=== PATIENT | female | born 1995 | race Caucasian/White ===

== ENCOUNTER 2017-01-11 20:53 | Emergency (ER) | payer OTHER ==
[~2017-01-11] VITALS: Ht 162.6 cm; Wt 54.2 kg
[2017-01-11 20:59] VITALS: TEMP 37.2; Ht 162.6 cm; Wt 54.2 kg
[2017-01-11] MEDS ORDERED: NIAC1TAB PO (21:11)
[2017-01-11] MEDS ORDERED: BCPILLS PO (21:11)
[2017-01-11] MEDS ORDERED: [UNRECOGNIZED DRUG - OTHER] PO (21:17)
[2017-01-11 21:26] LABS: URINE APPEARANCE CLOUDY (CLEAR); URINE BILIRUBIN NEG (NEG); URINE COLOR RED; URINE EPITHELIAL CELL AUTO 0-5 /lpf (0-5); URINE NITRITE NEG (NEG); URINE SPECIFIC GRAVITY 1.008 (1.000-1.030); UROBILINOGEN NEG (NEG); ZZUR CULT IF INDIC CLEAN CATCH YES
[2017-01-11 21:27] LABS: MANUAL MICROSCOPIC REQUIRED? NO; REVIEW REQ? YES
[2017-01-11] MEDS ORDERED: PHENAZOPYRIDINE HOME PACK 200 MG VIAL PO ONE (21:45)
[2017-01-11] MEDS ORDERED: PHEN-876 PO (21:47)
[2017-01-11] MEDS ORDERED: NITR-5 PO (21:47)
--- NOTE | 2017-01-11 21:48 | EMERGENCY ROOM VISIT NOTE ---
History First contact with patient: 21:29 Chief Complaint: HEMATURIA Stated Complaint: HEMATURIA, POSSIBLE KIDNEY INFECTION Nursing Triage Summary: c/o uti symptoms for 2 hrs. seem at [facility] and given rx told to come here. History of Present Illness The patient is a 21 year old female who presents to the Emergency Room with complaints of urinary symptoms. The patient states that approximately 2 hours ago, she began to have blood in her urine. She reports she also has urinary urgency, frequency and dysuria. She reports some pressure in her lower abdomen. She does state that she had some low back pain earlier, but she was riding in the car for 10 hours today. She reports her back pain has improved at this time. She was seen at [facility] and was discharged home with a prescription for an antibiotic. She states that she received a call from [facility] and they told her to come here for evaluation of a possible kidney infection. The patient denies any vomiting or fevers. She has a history of UTIs and states this feels similar. Review of Systems A complete 10 point review of systems was reviewed with the patient with pertinent positives and negatives as per history of present illness. All else were negative. Social History Smoking Status: Never Smoker Current/Historical Medications Scheduled Control Pills ( Control Pills), 1 TAB PO DAILY Nitrofurantoin Monohyd Macrocr (Macrobid), 100 MG PO BID Phenazopyridine HCl (Pyridium), 200 MG PO TID [Nicomide], 1 TAB PO BID Physical Exam Vital Signs Date Time Temp Pulse Resp B/P (MAP) Pulse Ox O2 Delivery O2 Flow Rate FiO2 01/11/17 22:10 102 18 137/82 98 Room Air 01/11/17 20:59 37.2 72 16 135/100 100 Room Air Physical Exam VITALS: Vitals are noted on the nurse's note and reviewed by myself. Vital signs stable. GENERAL: This is a 21-year-old female, in no acute distress, nondiaphoretic, well-developed well-nourished. HEART: Regular rate and rhythm without murmurs gallops or rubs. LUNGS: Clear to auscultation bilaterally without wheezes, rales or rhonchi. ABDOMEN: Positive bowel sounds x 4. Soft, nontender to palpation. No CVA tenderness. NEURO: Patient was alert and oriented to person place and time. Medical Decision & Procedures Laboratory Results Test 01/11/17 21:05 Urine Color RED Urine Appearance CLOUDY (CLEAR) Urine pH 7.0 (4.5-7.5) Urine Specific [place] 1.008 (1.000-1.030) Urine Protein 2+ (NEG) Urine Glucose (UA) NEG (NEG) Urine Ketones NEG (NEG) Urine Occult Blood 3+ (NEG) Urine Nitrite NEG (NEG) Urine Bilirubin NEG (NEG) Urine Urobilinogen NEG (NEG) Urine Leukocyte Esterase LARGE (NEG) Urine WBC (Auto) >30 /hpf (0-5) Urine RBC (Auto) >30 /hpf (0-4) Urine Hyaline Casts (Auto) 1-5 /lpf (0-5) Urine Epithelial Cells (Auto) 0-5 /lpf (0-5) Urine Bacteria (Auto) 2+ (NEG) Urine Yeast (Auto) (NONE PRSENT) Medications Administered Medications (Trade) Dose Ordered Sig/Lynn Route Start Time Stop Time Status Last Admin Dose Admin Phenazopyridine HCl (Phenazopyridine HCl 200MG Home Pack) 1 homepack UD ONCE PO 01/11/17 21:45 01/11/17 21:46 DC 01/11/17 22:05 1 HOMEPACK Nitrofurantoin Macrocrystals (Macrobid Cap) 200 mg STK-MED ONCE .ROUTE 01/11/17 21:59 01/11/17 22:00 DC 01/11/17 22:05 200 MG Medical Decision Differential diagnosis includes UTI, pyelonephritis, kidney stone, vaginal infection, among others. The patient was evaluated as above. Urinalysis was suggestive of infection with the presence of leukocyte esterase, white blood cells, red blood cells and bacteria. This will be sent for culture. The patient has no CVA tenderness on exam. There is no vomiting or fever to suggest pyelonephritis. The patient will be discharged home on Macrobid and Pyridium for symptomatic relief. She was instructed to return for any worsening or new/concerning symptoms. She verbalized understanding of my assessment and treatment plan was discharged home in good condition. Medication Reconcilliation Current Medication List: was personally reviewed by me Blood Pressure Screening Patient's blood pressure: Normal blood pressure Impression Primary Impression: UTI (urinary tract infection) Departure Information Dispostion Home / Self-Care Condition GOOD Prescriptions Phenazopyridine HCl (Pyridium) 200 Mg Tab 200 MG PO TID for 2 Days, #6 TAB Prov: Julia Kay PA-C 01/11/17 Nitrofurantoin Monohyd Macrocr (Macrobid) 100 Mg Cap 100 MG PO BID for 6 Days, #12 CAP Prov: Julia Kay PA-C 01/11/17 Referrals No Doctor, Assigned (PCP) Patient Instructions My [facility] [address] Additional Instructions You have been treated in the Emergency Department for a Urinary Tract Infection (UTI). You have been prescribed Macrobid to be taken twice daily for 7 days. This is an antibiotic. All antibiotics have the potential to cause diarrhea. Stop this medication and contact a medical provider if you were to develop any significant adverse side effects including: wheezing, shortness of breath, passing out, vomiting, or a diffuse rash. Always take antibiotics as directed and COMPLETE the ENTIRE course regardless of the improvement of your symptoms. You have been prescribed Pyridium to be taken as prescribed. This medicine will help with the urinary symptoms that you have been experiencing. Be aware that Pyridium may turn your urine a red-orange or brown color. This effect is harmless. Drink plenty of water and stay well hydrated. As with any trip to the Emergency Department, you should follow-up with your Primary Care Provider from today's visit. Return to the emergency department if your symptoms persist despite treatment plan outlined above or if the following symptoms occur: increased fevers, chills , low back pain, nausea/vomiting, or blood in your urine. Problem Qualifiers Primary Impression: UTI (urinary tract infection) Urinary tract infection type: acute cystitis Hematuria presence: with hematuria Qualified Codes: N30.01 - Acute cystitis with hematuria
[2017-01-11] MEDS ORDERED: NITROFURANTOIN MONOHYDRATE 100 MG CAP ONE (21:59)
[2017-01-11] MEDS ORDERED: EMPTY 8 DRAM VIAL ONE (21:59)
[2017-01-11 22:10] VITALS: BP 137/82; PULSE 102; O2SAT 98
[2017-01-12] MEDS ORDERED: NITROFURANTOIN MONOHYDRATE 100 MG CAP PO ONE (09:00)
--- NOTE | 2017-01-13 11:07 | Pharmacy Progress Note ---
ED Pharmacist Culture FollowUp Date of Service: Jan 13, 2017. Patient was sent home with a prescription for macrobid 100mg BID X 7 days, which should cover the E. Coli growing from the patient's urine culture.
== END 2017-01-11 22:12 | disposition home or self-care (01) ==
LOC: C.EDB 20:56 → C.EDD 22:12
DX: N30.01 Acute cystitis with hematuria (principal); Z79.3 Long term (current) use of hormonal contraceptives